=== PATIENT | male | born 1955 | race American Indian/Alaskan Native ===

== ENCOUNTER 2017-06-29 22:55 | Emergency (ER) | payer OTHER ==
--- NOTE | 2017-06-29 23:27 | EDM.PDOC ---
ED HPI GENERAL MEDICAL PROBLEM - General Chief Complaint: Respiratory Problem Stated Complaint: DIFFICULTY BREATHING Time Seen by Provider: 06/29/17 23:20 Source of Information: Reports: Patient History Limitations: Reports: No Limitations - History of Present Illness INITIAL COMMENTS - FREE TEXT/NARRATIVE: 61 yo Male c/o nasal congestion today w/ difficulty breathing out of his nose. Pt. admits to smoking Cigarettes and having sinus problems. Pt. denies any fever or chills Onset: Today Onset Date: 06/29/17 Onset Time: 12:00 Duration: Hour(s): Location: Reports: Face Quality: Reports: Same as Previous Episode Severity: Moderate Improves with: Reports: None Worsens with: Reports: None Context: Reports: Other (Cigarette use) Associated Symptoms: Reports: No Other Symptoms Face Pain Score (Numeric/FACES): 10 - Related Data Allergies Allergy/AdvReac Type Severity Reaction Status Date / Time No Known Allergies Allergy Verified 06/29/17 23:10 Home Meds: Home Meds . [No Known Home Meds] 06/29/17 [History] Past Medical History - Past Health History Medical/Surgical History: Denies Medical/Surgical History Musculoskeletal History: Reports: Arthritis, Other (See Below) Other Musculoskeletal History: Tendenitis Rt.hand Psychiatric History: Reports: Anxiety - Past Surgical History HEENT Surgical History: Reports: Cataract Surgery Social & Family History - Family History Family Medical History: Noncontributory - Tobacco Use Smoking Status *Q: Current Every Day Smoker Years of Tobacco use: 40 Packs/Tins Daily: 1 Second Hand Smoke Exposure: No - Caffeine Use Caffeine Use: Reports: Coffee - Recreational Drug Use Recreational Drug Use: No ED ROS GENERAL - Review of Systems Review Of Systems: See Below Constitutional: Reports: No Symptoms HEENT: Reports: Sinus Problem, Other (nasal pressure) Respiratory: Reports: No Symptoms Cardiovascular: Reports: No Symptoms Endocrine: Reports: No Symptoms GI/Abdominal: Reports: No Symptoms : Reports: No Symptoms Musculoskeletal: Reports: No Symptoms Skin: Reports: No Symptoms Neurological: Reports: No Symptoms Psychiatric: Reports: No Symptoms Hematologic/Lymphatic: Reports: No Symptoms Immunologic: Reports: No Symptoms ED EXAM, GENERAL - Physical Exam Exam: See Below Exam Limited By: No Limitations General Appearance: Alert, No Apparent Distress, Obese Eye Exam: Bilateral Eye: EOMI, PERRL Ears: Normal External Exam Ear Exam: Bilateral Ear: TM Bulging Nose: Nasal Swelling (Turbinate swelling bilateral) Throat/Mouth: Normal Inspection, Normal Lips Head: Atraumatic Neck: Normal Inspection, Supple, Non-Tender Respiratory/Chest: No Respiratory Distress, Lungs Clear Cardiovascular: Normal Peripheral Pulses, Regular Rate, Rhythm, No Edema Peripheral Pulses: 2+: Radial (L), Radial (R) GI/Abdominal: Normal Bowel Sounds Back Exam: Normal Inspection Extremities: Normal Inspection, Normal Range of Motion, Non-Tender Neurological: Alert, Oriented, CN II-XII Intact, Normal Cognition Psychiatric: Normal Affect, Normal Mood Skin Exam: Warm, Dry, Intact Lymphatic: No Adenopathy Course - Vital Signs Last Recorded V/S: Last Vital Signs Temp 35.9 C 06/29/17 23:04 Pulse 73 06/29/17 23:04 Resp 16 06/29/17 23:04 BP 164/89 H 06/29/17 23:04 Pulse Ox 100 06/29/17 23:04 Departure - Departure Time of Disposition: 23:29 Disposition: Home, Self-Care 01 Condition: Good Clinical Impression: Nasal congestion, Tobacco abuse disorder - Discharge Information Additional Instructions: Stop Smoking CIGARETTES Increase intake of Water / Juice Decrease mucus producing foods ( DAIRY, BREAD, MEAT AND PROCESSED FOODS) Try using Vics Vaporizer / Humidifier in house Rinse Nose TID w/ Warm water Use the Nasal [place] as prescribed : FLONASE NASAL SPRAY 2 sprays to each nostril QD X 5 days F/U w/ PCP
[2017-06-29] MEDS ORDERED: Fluticasone Propionate Nasal Spray 16 GM Bottle NASBOTH SCH (23:30)
== END 2017-06-29 23:53 | disposition home or self-care (01) ==
LOC: DL.ED 22:55
DX: R09.81 Nasal congestion (principal); F17.210 Nicotine dependence, cigarettes, uncomplicated
CPT/HCPCS: 99283; A9270